=== PATIENT | female | born 1985 | race Asian ===

== ENCOUNTER 2020-11-15 00:41 | Inpatient (IN) ==
[2020-11-15] MEDS ORDERED: PENICILLIN G POTASSIUM 3 MU in DEXTROSE 5% 100 ML IV PRN (01:13)
[2020-11-15] MEDS ORDERED: OXYTOCIN 30 UNITS/500 ML BAG IV PRN ×2 (01:13→06:29)
[2020-11-15] MEDS ORDERED: PENICILLIN G POTASSIUM 6 MU in DEXTROSE 5% 250 ML IV STA (01:13)
[2020-11-15] MEDS: LACTATED RINGER'S 1,000 ML IV PRN ×2 (01:32→02:51)
[2020-11-15] MEDS ORDERED: ePHEDrine sulfate 50 MG/ML AMP ONE (01:43)
[2020-11-15] MEDS ORDERED: SODIUM CHLORIDE 0.9% INJ 10 ML VIAL ONE (01:43)
[2020-11-15] MEDS ORDERED: BUPIVACAINE 0.25% 30 ML VIAL ONE (01:43)
[2020-11-15] MEDS ORDERED: fentaNYL 2MCG/ML ROPIVACAINE 1.25MG/ML 100 ML BAG EPI ONE (01:44)
[2020-11-15] MEDS ORDERED: fentaNYL citrate 100 MCG/2 ML VIAL ONE (01:44)
[2020-11-15 01:58] LABS: Hematocrit (blood only) 38.6 % (37-47); Hemoglobin 13.2 g/dL (12.0-16.0); Mean Corpuscular Hemoglobin 32.4 pg (25-34); Mean Corpuscular Hgb Conc 34.2 g/dL (32-36); Mean Corpuscular Volume 94.8 fL (80-100); Mean Platelet Volume 11.1 fL (7.4-10.4); Platelet Count 182 K/uL (130-400); RDW Coefficient of Variation 13.6 % (11.5-14.5); RDW Standard Deviation 46.5 fL (36.4-46.3); Red Blood Count 4.07 M/uL (4.2-5.4); White Blood Count 12.71 K/uL (4.8-10.8)
--- NOTE | 2020-11-15 02:57 | Anesthesiology Consultation ---
Date of Service November 15, 2020 Assessment & Plan Chart Review Chart Review: Acceptable Risk for Labor Epidural Consults Requested none History Height/Weight Height: 5 ft 3 in Weight: 65.317 kg Allergies Allergy/AdvReac Type Severity Reaction Status Date / Time No Known Allergies Allergy Verified 11/14/20 14:06 Medications Home Medications Medication Instructions Recorded Confirmed Last Taken vit no.[id number] 1 tab PO DAILY 11/15/20 11/15/20 11/14/20 08:00 [ Vitamin] triamcinolone acetonide TOPICAL BID 11/15/20 11/14/20 Active Medications Generic Name Dose Route Start Last Admin Trade Name Freq PRN Reason Stop Dose Admin Lactated Ringer's 1,000 mls @ 125 mls/hr 11/15/20 01:13 11/15/20 01:32 Lr IV 11/17/20 01:12 999 mls/hr .Q8H PRN Administration L&D Protocol Protocol Past Medical History Medical History History of chicken pox History of PCOS Past Family History Family History Father Diabetes Stroke Denies family history of Ovarian cancer Breast cancer Colorectal cancer Past Surgical History Surgical History S/P wisdom tooth extraction Social History Smoking Status: Never smoker Do You Dip or Chew Tobacco: No Hx Alcohol Use: No Hx Substance Use: No substance use type: does not use Physical Exam Vital Signs Last Vital Signs Temp 36.8 C 11/15/20 01:21 Pulse 69 11/15/20 02:54 Resp 18 11/15/20 01:21 BP 101/53 L 11/15/20 02:54 Pulse Ox 97 11/15/20 02:52 Testing Laboratory Results 11/15/20 01:40
[2020-11-15] MEDS ORDERED: diphenhydrAMINE 50 MG/ML VIAL IV PRN (03:01)
[2020-11-15] MEDS ORDERED: fentaNYL 2MCG/ML ROPIVACAINE 1.25MG/ML 100 ML BAG EPI PRN (03:01)
[2020-11-15] MEDS ORDERED: NALOXONE HCL 0.4 MG/1 ML VIAL/CARP IV PRN (03:01)
[2020-11-15] MEDS ORDERED: NALOXONE HCL 1 MG in SODIUM CHLORIDE 0.9% 1000ML 1,000 ML IV PRN (03:01)
[2020-11-15] MEDS ORDERED: ePHEDrine sulfate 50 MG/ML AMP IV PRN (03:01)
--- NOTE | 2020-11-15 04:40 | History & Physical Report ---
Date of Service November 15, 2020 Assessment & Plan (1) Normal labor: Admission and Anticipated Discharge Date Admission Date: November 15, 2020 Patient has epidural. Fetus overall reassuring category two. Will try to get second dose of pcn on board, but baby low and some variables. Consider arom and pushing. Anticipate . History of Present Illness Chief Complaint: contractions Primary Care Provider: NO PCP Patient is a 35yoad who presents to labor and delivery complaining of contractions. Has been having for several hours and now very painful. no lof/vb. has been uncompliccated. labs--O+/ab-/ri/rprnr/hepb-/hiv-/gc/ctneg/gtt x2 neg/gbs neg. Allergies Allergy/AdvReac Type Severity Reaction Status Date / Time No Known Allergies Allergy Verified 11/14/20 14:06 Home Medications Medication Instructions Recorded Confirmed Type vit no.[id number] 1 tab PO DAILY 11/15/20 11/15/20 History [ Vitamin] triamcinolone acetonide TOPICAL BID 11/15/20 History Patient History Medical History Eczema History of chicken pox History of PCOS Surgical History S/P wisdom tooth extraction Family History Father Diabetes Stroke Denies family history of Ovarian cancer Breast cancer Colorectal cancer Social History Smoking Status: Never smoker Second Hand Exposure: No; Do You Dip or Chew Tobacco: No; Tobacco Cessation Education Requested by Patient: No Hx Alcohol Use: No Hx Substance Use: No Preferred Language: [place] Marine Services Technician Required: No Beliefs That Will Affect Care: None marital status: marital status details: Tomas Menchaca (32) [phone] Current Living Situation: Spouse Current Living Situation Comment: Lives with current occupational status: employed current occupation: voice data communications engineer Other Information That Helps Us Care for You: No Feels Safe at Home: Yes Safety Concerns: Feels Safe At This Time Assistive Devices: Glasses Assistive Devices Comment: Wears glasses 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 Physical Exam Constitutional: WD/WN, vitals as above Gastrointestinal (Abdomen): soft, gravid, nt Psychiatric: A+Ox3, euthymic affect Genitourinary: cx--10/9099/0 on admission, now c/c/bulging bag toco--q2-3min efm--140s with mod variability, small accels, variables with some contractions [facility] & Data ([facility]) Vital Signs (Past 12 Hours) Vital Signs Temp Pulse Resp BP Pulse Ox 11/15/20 04:37 64 99 11/15/20 04:32 69 98 11/15/20 04:27 72 98 11/15/20 04:25 71 102/59 L 11/15/20 04:22 71 97 11/15/20 04:17 70 96 11/15/20 04:12 70 96 11/15/20 04:09 72 96/56 L 11/15/20 04:07 71 96 11/15/20 04:02 71 97 11/15/20 03:57 79 97 11/15/20 03:56 69 107/58 L 11/15/20 03:52 83 96 11/15/20 03:47 76 96 11/15/20 03:42 72 96 11/15/20 03:39 78 95/58 L 11/15/20 03:37 78 96 11/15/20 03:36 70 100/58 L 11/15/20 03:32 87 103/55 L 96 11/15/20 03:27 73 96 11/15/20 03:25 69 106/57 L 11/15/20 03:22 74 98 11/15/20 03:20 73 100/56 L 11/15/20 03:17 76 97 11/15/20 03:14 75 104/64 11/15/20 03:12 77 97 11/15/20 03:10 74 108/63 11/15/20 03:07 78 98 11/15/20 03:05 80 119/62 11/15/20 03:02 73 98 11/15/20 03:00 18 11/15/20 02:59 64 134/55 L 11/15/20 02:57 72 98 11/15/20 02:55 18 11/15/20 02:54 69 101/53 L 11/15/20 02:52 74 97 11/15/20 02:51 72 98/59 L 11/15/20 02:50 75 18 96/55 L 11/15/20 02:48 70 95/50 L 11/15/20 02:47 69 98 11/15/20 02:45 72 18 101/52 L 11/15/20 02:44 87 95/50 L 11/15/20 02:42 76 91/53 L 99 11/15/20 02:40 18 11/15/20 02:38 79 126/68 11/15/20 02:37 80 98 11/15/20 02:36 72 143/66 H 11/15/20 02:32 71 98 11/15/20 02:27 74 100 11/15/20 02:22 78 100 11/15/20 02:17 69 100 11/15/20 02:12 72 100 11/15/20 02:07 82 100 11/15/20 02:02 66 100 11/15/20 01:21 36.8 C 67 18 103/61 11/15/20 01:18 36.8 C 67 18 103/61 Coding Level of Care Code None Diagnoses Normal labor O80; Z37.9
[2020-11-15] MEDS ORDERED: oxyCODONE/ACETAMINOPHEN 5mg/325mg TAB PO PRN (06:18)
[2020-11-15] MEDS ORDERED: ACETAMINOPHEN 325 MG TAB PO PRN (06:18)
--- NOTE | 2020-11-15 06:21 | Delivery Summary ---
Vaginal Delivery Summary Date of Service November 15, 2020 Pre-operative Diagnosis: at 39 3/7 weeks active labor Post-operative Diagnosis: same Procedure: epidural arom midline episitomy with second degree laceration and repair EBL: 300cc Anesthesia: epidural Procedure: The patient pushed for about one hour to deliver a viable female infant in tank position. The nose and mouth were bulb suctioned on the perineum and the rest of the infant was then delivered without difficulty. The baby was vigorous. The nose and mouth were again bulb suctioned and the was placed in the maternal abdomen for drying and attention. Cord was clamped and cut at one minute of life. Cord blood and segment obtained. Placenta delivered spontaneous, intact with a three vessel cord. Cervix/sulci/rectum were intact. A midline epis was cut for delivery and the resulting second degree perineal laceration was repaired in the normal standard fashion. Hemostasis obtained with dilute pitocin and fundal massage. Apgars were 8/9. Mother and baby doing well at the end of the delivery. Vaginal Delivery Summary and 2nd Degree [facility] Vaginal Delivery Charge Delivery Type Details: and 2nd Degree [facility]
[2020-11-15] MEDS ORDERED: BENZOCAINE 20% AER SPR 82.5 GM CAN EXT PRN (06:29)
[2020-11-15] MEDS ORDERED: SUPERCREAM 0.870% 15 GM JAR EXT PRN (06:29)
[2020-11-15] MEDS ORDERED: HYDROCORTISONE ACETATE 25 MG SUPP PR PRN (06:29)
[2020-11-15] MEDS ORDERED: DIPHTHERIA/TETANUS/PERTUSSIS 0.5 ML SYR/VIAL IM ONE (06:29)
[2020-11-15] MEDS ORDERED: bisacodyL 10 MG SUPP PR PRN (06:29)
--- NOTE | 2020-11-15 08:17 | Anesthesia Procedure Note ---
Date of Service November 15, 2020 Anesthesia Post Epidural Note Vital Signs Vital Signs: Temp Pulse Resp BP Pulse Ox 36.5 C 80 18 109/77 99 11/15/20 06:22 11/15/20 08:07 11/15/20 07:45 11/15/20 08:07 11/15/20 06:37 Pain Intensity Abdomen: Pain Intensity: 0 Notes Mental Status: alert / awake / arousable and participated in evaluation Nausea / Vomiting: adequately controlled Pain: adequately controlled Airway Patency, RR, SpO2: stable & adequate BP & HR: stable & adequate Hydration State: stable & adequate Neuraxial Anesthesia: was administered and sensory block is resolving Anesthetic Complications: no major complications apparent Epidural: Removed without complications and With tip intact
[2020-11-15] MEDS: DOCUSATE SODIUM 100 MG CAP PO SCH ×2 (10:53→21:03)
[2020-11-15] MEDS: IBUPROFEN 600 MG TAB PO PRN ×2 (10:53→21:03)
[2020-11-15] MEDS: PRENATAL VITAMIN 1 TAB PO SCH (10:54)
--- NOTE | 2020-11-16 07:11 | Obstetrical Progress Note ---
Date of Service November 16, 2020 Assessment & Plan (1) state: PPD#1 routine care (2) Urinary retention: TOV today Subjective Ambulation: ambulating normally Voiding: [place] catheter in place (will have TOV this morning) Passing Gas:: Yes Diet Tolerance:: regular diet Lochia:: Small Feeding Type:: breast feeding Physical Exam Constitutional WD/WN, vitals as above Eyes PERRL, conjunctivae normal, anicteric sclerae Neck normal visual inspection Respiratory normal respiratory effort and able to speak in complete sentences; no respir atory distress and no labored breathing Cardiovascular Rate/Rhythm: regular rate and regular rhythm Extremities: no edema Chest (Breasts) Chest: normal inspection of chest Gastrointestinal (Abdomen) Inspection/Auscultation: abdomen normal to inspection Soft, postgravid Psychiatric A+Ox3, euthymic affect Genitourinary OB Exam Abdomen: + fundal height Fundus: + firm and + relation to umbilicus (fundus just below umbilicus); not tender Results & Data ([facility]) Vital Signs (Past 12 Hours) Vital Signs Temp Pulse Resp BP Pulse Ox 11/16/20 03:30 98.2 F 61 16 104/56 L 99 11/15/20 23:00 98.4 F 59 L 17 110/69 98 11/15/20 19:30 97.5 F L 66 16 123/76 98
[2020-11-16 07:21] LABS: Hematocrit (blood only) 36.1 % (37-47); Hemoglobin 12.4 g/dL (12.0-16.0)
[2020-11-16] MEDS: PRENATAL VITAMIN 1 TAB PO SCH (08:31)
[2020-11-16] MEDS: DOCUSATE SODIUM 100 MG CAP PO SCH ×2 (08:31→20:46)
[2020-11-16] MEDS: IBUPROFEN 600 MG TAB PO PRN (19:53)
[2020-11-16] MEDS ORDERED: bisacodyL 5 MG TABEC PO SCH (20:00)
--- NOTE | 2020-11-17 07:13 | Obstetrical Progress Note ---
Date of Service November 17, 2020 Assessment & Plan (1) state: Voiding well and ready for d/c home. Instructions reviewed. Subjective Ambulation: ambulating normally Voiding: no voiding problems Passing Gas:: Yes Diet Tolerance:: regular diet Lochia:: Small Feeding Type:: breast feeding Physical Exam Constitutional WD/WN, vitals as above Eyes PERRL, conjunctivae normal, anicteric sclerae Neck normal visual inspection Respiratory normal respiratory effort and able to speak in complete sentences; no respiratory distress and no labored breathing Cardiovascular Rate/Rhythm: regular rate and regular rhythm Extremities: no edema Chest (Breasts) Chest: normal inspection of chest Gastrointestinal (Abdomen) Inspection/Auscultation: abdomen normal to inspection Soft, postgravid Psychiatric A+Ox3, euthymic affect Genitourinary OB Exam Abdomen: + fundal height Fundus: + firm and + relation to umbilicus (fundus just below umbilicus); not tender Results & Data ([facility]) Vital Signs (Past 12 Hours) Vital Signs Temp Pulse Resp BP Pulse Ox 11/16/20 23:20 98.1 F 54 L 16 102/63 98 11/16/20 19:45 98.2 F 64 16 115/75 99
[2020-11-17] MEDS: DOCUSATE SODIUM 100 MG CAP PO SCH (08:30)
[2020-11-17] MEDS: PRENATAL VITAMIN 1 TAB PO SCH (08:30)
== END 2020-11-17 19:37 | disposition home or self-care (01) | DRG 807 ==
LOC: OPB 00:41 → 4S1 00:48 → 4S2 09:24

== ENCOUNTER 2023-08-08 01:19 | Inpatient (IN) ==
[2023-08-08] MEDS ORDERED: OXYTOCIN 10 UNITS/ML VIAL IM ONE (01:53)
--- NOTE | 2023-08-08 02:01 | Delivery Summary ---
Vaginal Delivery Summary Date of Service August 08, 2023 Vaginal Delivery Summary Spontaneous vaginal delivery the patient arrived fully dilated she was GBS positive however her membranes ruptured spontaneously prior to exam and the head was right there was not time for IV antibiotics or epidural patient then pushed pushed over several contractions delivering a baby in occiput anterior position live vigorous female infant cord clamped and cut cord blood obtained placenta removed with traction intramuscular Pitocin was then given there was some tearing on the right side of the anterior labial clitoral region and a small first-degree tear these were injected with 1% lidocaine local anesthetic and repaired with 3-0 Vicryl sponge instrument counts were correct bleeding subsided after oxytocin and delivery of the placenta estimated blood loss 150 mL [facility] Vaginal Delivery Charge Delivery Type Details:
[2023-08-08] MEDS ORDERED: LACTATED RINGER'S 1,000 ML IV PRN (02:23)
[2023-08-08] MEDS ORDERED: LIDOCAINE 1% LOCAL 20 ML VIAL INFIL PRN (02:23)
[2023-08-08] MEDS ORDERED: OXYTOCIN 30 UNITS/NSS 30 UNITS/500 ML BAG IV PRN ×2 (02:23→03:17)
[2023-08-08] MEDS ORDERED: OXYTOCIN 10 UNITS/ML 10ML VIAL IM ONE (02:27)
[2023-08-08] MEDS ORDERED: DIPHTHER/TETAN/PERTUS Vaccine (Tdap, Adol/Adult) 0.5mL IM ONE (03:17)
[2023-08-08] MEDS ORDERED: bisacodyL 10 MG SUPP PR PRN (03:17)
[2023-08-08] MEDS ORDERED: HYDROCORTISONE ACETATE 25 MG SUPP PR PRN (03:17)
[2023-08-08] MEDS ORDERED: oxyCODONE/ACETAMINOPHEN 5mg/325mg TAB PO PRN (03:17)
[2023-08-08] MEDS ORDERED: ACETAMINOPHEN 325 MG TAB PO PRN (03:17)
[2023-08-08] MEDS ORDERED: BENZOCAINE 20% SPRY 85 APPLN/85 GM CAN EXT PRN (03:17)
[2023-08-08] MEDS: IBUPROFEN 600 MG TAB PO PRN ×5 (03:38→23:53)
[2023-08-08 03:43] LABS: Hematocrit (blood only) 38.6 % (37.0-47.0); Hemoglobin 13.3 g/dl (12.0-16.0); Mean Corpuscular Hemoglobin 33.2 pg (25.0-34.0); Mean Corpuscular Hgb Conc 34.5 g/dL (32.0-36.0); Mean Corpuscular Volume 96.3 fL (80.0-100.0); Mean Platelet Volume 10.9 fL (9.4-12.4); Platelet Count 210 K/uL (130-400); RDW Coefficient of Variation 12.4 % (11.5-14.5); RDW Standard Deviation 43.6 fL (36.4-46.3); Red Blood Count 4.01 M/uL (4.20-5.40); White Blood Count 15.52 K/ul (4.8-10.8)
[2023-08-08] MEDS: PRENATAL VITAMIN 1 TAB PO SCH (07:09)
[2023-08-08] MEDS: DOCUSATE SODIUM 100 MG CAP PO SCH ×2 (07:09→19:47)
--- NOTE | 2023-08-09 07:18 | Obstetrical Progress Note ---
Date of Service <Caro Nice MD - Last Filed: 08/09/23 07:42> August 09, 2023 Assessment & Plan <Caro Nice MD - Last Filed: 08/09/23 07:42> (1) Encounter for care after hospital delivery: Patient with the above mentioned history and findings was evaluated at bedside and found awake, alert, oriented in all spheres, afebrile, and in no acute distress. Vital signs showed no fever and blood pressures remained stable. Her blood type is O positive and most recent hemoglobin is adequate at 13.3 g/dL. She is GBS positive treated intrapartum and rubella immune. Overall, patient is doing well clinically and meeting the desired milestones. Since she is stable, will discharge today. Discharge instructions discussed. PAtient to call to make an appointment with her OB in 6 weeks for routine pp evaluation. All questions answered. <Shireen Robin MD, FACOG - Last Filed: 08/09/23 07:44> (1) Encounter for care after hospital delivery: Subjective <Caro Nice MD - Last Filed: 08/09/23 07:42> Carolyn is a 37 y/o female who is now PPD # 1 following at 39 weeks. Reports feeling well overall this morning. Refers mild abdominal cramping & 2/10 pain well managed on analgesics. Voiding spontaneously. Has passed flatus but no bowel movements yet. Tolerating meals overnight and able to ambulate some. Some persistent lochia with some improvement this morning. and supplementing with bottle feeds. Constitutional: no fever, no chills or no sweats Denies shortness of breath or difficulty breathing Cardiovascular: no chest pain or no palpitations Breast: no breast pain Genitourinary (female): no dysuria Neurologic: no headache(s) Denies changes in vision Physical Exam <Caro Nice MD - Last Filed: 08/09/23 07:42> General: Alert. Oriented to person, time, and place. Afebrile. No acute distress. Eyes: pupils equal and reactive to light bilaterally, extraocular movements intact. Cardiac: Regular rate and rhythm, no murmurs/rubs/gallops. Respiratory: Clear to auscultation bilaterally a/p, no wheezes/rales/rhonchi. No increased work of breathing. Symmetrical chest rise. No respiratory distress. Abdomen: Soft, nontender, nondistended. Bowel sounds present. Uterus: Uterine fundus firm, nontender, and palpable below umbilicus. Lower Extremities: No lower extremity edema or swelling. No deep calf pain. Glenroy's negative bilaterally. Psych: Euthymic affect. Mood and affect congruence. Regular speech rate and content. Results & Data <Caro Nice MD - Last Filed: 08/09/23 07:42> Vital Signs (Past 12 Hours) Vital Signs Temp Pulse Resp BP Pulse Ox O2 Del Method 08/08/23 23:50 36.7 C 69 16 99/63 L 97 Room Air 08/08/23 19:40 36.8 C 67 16 94/61 L 98 Room Air Supervising Physician <Shireen Robin MD, FACOG - Last Filed: 08/09/23 07:44> Co-Signing Physician Notes Resident Physician Supervision Note: I was present with Dr. Nice during the history and exam. I discussed the case with the resident and agree with the findings and plan as documented in the note. Any exceptions or clarifications are listed here: pt doing well, eating, voiding, ambulating. bleeding decreased,nursing doing well. abd soft ff 2 down nt, nt calves. ppd#1 s/p , desires dc home, f/u 6 wks, instructions reviewed. breast, rhpos, ri. Documented By: Shireen Robin MD, FACOG
[2023-08-09] MEDS: DOCUSATE SODIUM 100 MG CAP PO SCH ×2 (07:49→20:08)
[2023-08-09] MEDS: PRENATAL VITAMIN 1 TAB PO SCH (07:49)
[2023-08-09] MEDS: IBUPROFEN 600 MG TAB PO PRN ×3 (07:50→23:14)
[2023-08-09] MEDS ORDERED: bisacodyL 5 MG TABEC PO SCH (20:00)
--- NOTE | 2023-08-10 06:51 | Obstetrical Progress Note ---
Date of Service <Caro Nice MD - Last Filed: 08/10/23 07:40> August 10, 2023 Assessment & Plan <Caro Nice MD - Last Filed: 08/10/23 07:40> (1) Encounter for care after hospital delivery: Patient with the above mentioned history and findings was evaluated at bedside and found awake, alert, oriented in all spheres, afebrile, and in no acute distress. Vital signs showed no fever and blood pressures remained stable. Her blood type is O positive and most recent hemoglobin is adequate at 13.3 g/dL. She is GBS positive treated intrapartum and rubella immune. Overall, patient is doing well clinically and meeting the desired milestones. Since she is stable, will discharge today. Discharge instructions discussed. PAtient to call to make an appointment with her OB in 6 weeks for routine pp evaluation. All questions answered. <Minerva Orellana MD, FACOG - Last Filed: 08/10/23 08:04> (1) Encounter for care after hospital delivery: Subjective <Caro Nice MD - Last Filed: 08/10/23 07:40> Carolyn is a 37 y/o female who is now PPD # 2 following at 39 weeks. Reports feeling well overall this morning. Refers mild abdominal cramping & 2/10 pain well managed on analgesics. Voiding spontaneously. Has passed flatus but no bowel movements yet. Tolerating meals overnight and able to ambulate without any lightheadedness or dizziness. Some persistent lochia with some improvement this morning. and supplementing with bottle feeds. Constitutional: no fever, no chills or no sweats Denies shortness of breath or difficulty breathing Cardiovascular: no chest pain or no palpitations Breast: no breast pain Genitourinary (female): no dysuria Neurologic: no headache(s) Denies changes in vision Physical Exam <Caro Nice MD - Last Filed: 08/10/23 07:40> General: Alert. Oriented to person, time, and place. Afebrile. No acute distress. Eyes: pupils equal and reactive to light bilaterally, extraocular movements intact. Cardiac: Regular rate and rhythm, no murmurs/rubs/gallops. Respiratory: Clear to auscultation bilaterally a/p, no wheezes/rales/rhonchi. No increased work of breathing. Symmetrical chest rise. No respiratory distress. Abdomen: Soft, nontender, nondistended. Bowel sounds present. Uterus: Uterine fundus firm, nontender, and palpable below umbilicus. Lower Extremities: No lower extremity edema or swelling. No deep calf pain. Glenroy's negative bilaterally. Psych: Euthymic affect. Mood and affect congruence. Regular speech rate and content. Results & Data <Caro Nice MD - Last Filed: 08/10/23 07:40> Vital Signs (Past 12 Hours) Vital Signs Temp Pulse Resp BP Pulse Ox O2 Del Method 08/09/23 23:00 36.3 C L 64 18 101/66 97 Room Air 08/09/23 19:40 36.6 C 65 18 101/66 98 Room Air Supervising Physician <Minerva Orellana MD, FACOG - Last Filed: 08/10/23 08:04> Co-Signing Physician Notes Resident Physician Supervision Note: I interviewed and examined the patient. Discussed with Dr. Nice and agree with findings and plan as documented in the note. Any exceptions or clarifications are listed here: [None] Documented By: Minerva Orellana MD, FACOG
[2023-08-10] MEDS: IBUPROFEN 600 MG TAB PO PRN (07:35)
[2023-08-10] MEDS: DOCUSATE SODIUM 100 MG CAP PO SCH (07:35)
[2023-08-10] MEDS: PRENATAL VITAMIN 1 TAB PO SCH (07:35)
== END 2023-08-10 10:30 | disposition home or self-care (01) | DRG 807 ==
LOC: OPB 01:19 → 4S1 01:23 → 4E2 04:29